=== PATIENT | female | born 1950 ===

== ENCOUNTER → 2023-09-28 14:48 | Outpatient (REF) | payer MEDICARE, OTHER, SELFPAY | LOC: WDC 14:48 | PROVIDERS: ATTENDING PHYSICIAN Family Medicine | DX: Z12.31 Encounter for screening mammogram for malignant neoplasm of breast (principal) | CPT/HCPCS: 77063; 77067 ==

== ENCOUNTER 2024-01-09 20:14 | Inpatient (IN) | payer MEDICARE, OTHER, SELFPAY ==
[2024-01-09 16:11] VITALS: BMI 36.1
[2024-01-09 16:13] VITALS: BP 175/86
[2024-01-09 16:27] LABS: % Basophils 1.1 % (0-2); % Eosinophils 8.8 % (0-6); % Immature Granulocytes 0.3 % (0-0.5); % Monocytes 10.4 % (1.7-9.3); % Neutrophils 59.4 % (42.2-75.2); Absolute Basophils 0.1 10^3/uL (0-0.2); Absolute Eosinophils 0.7 10^3/uL (0-0.7); Absolute Lymphocytes 1.5 10^3/uL (1.2-3.4); Absolute Monocytes 0.8 10^3/uL (0.1-0.6); Absolute Neutrophils 4.5 10^3/uL (1.4-6.5); Hemoglobin 12.8 g/dL (12.0-16.0); Mean Corp Hgb Conc. 35.6 g/dL (33.0-37.0); Mean Corpuscular Hgb 31.2 pg (27.0-31.0); Mean Corpuscular Volume 87.8 fL (81.0-99.0); Mean Platelet Volume 8.9 fL (7.4-10.4); Nucleated Red Blood Cells % 0 %; Platelet Count 251 10^3/uL (130-400); Red Cell Dist. Width 12.3 % (11.5-14.5); White Blood Cell Count 7.5 10^3/uL (4.8-10.8)
[2024-01-09 16:41] LABS: ALT (SGPT) 15 U/L (0-35); AST (SGOT) 23 U/L (14-36); Albumin 3.7 g/dl (3.5-5.0); Alkaline Phosphatase 84 U/L (38-126); Blood Urea Nitrogen 10 mg/dl (7-17); Calcium 9.2 mg/dl (8.4-10.2); Carbon Dioxide 31 mmol/L (22-30); Chloride 91 mmol/L (98-107); Estimated Creatinine Clearance 93 ml/min; Glucose 86 mg/dl (70-99); Lipase 61 U/L (23-300); Potassium 4.2 mmol/L (3.5-5.1); Sodium 126 mmol/L (135-145); Total Bilirubin 0.7 mg/dl (0.2-1.3); eGFR > 60.00
[2024-01-09 18:18] VITALS: BP 176/73
[2024-01-09 18:19] VITALS: BMI 37.8
--- NOTE | 2024-01-09 18:36 | ED.GENMED ---
History of Present Illness
General
Chief Complaint: Abnormal Lab Value
Source: patient
Exam Limitations: none
Time Seen by Provider: 01/09/24 18:04
History of Present Illness
History of Present Illness:
This is a 73 year old female that comes in with c/o abnormal labs. States that after she was diagnosed with a brain tumor she has had issues with low sodium. State that her PCP had blood work done on Sunday and her Sodium was 130. States that prior
to this it was 133. States that she was called today and told to come to the ER. States that she has just not felt good the last couple of days. States that she feels a little confused and unsteady on her feet. States that she may walk into a room
and doesn't remember why she is there. States that today she also felt congested and has a slight sinus infection for which she took Mucinex and now she is feeling better. States that she is always SOB due to her asthma. States that she recently had
some right lower groin pain as she thought she pulled a muscle. Denies any fever, chills, chest pain, nausea, vomiting, diarrhea, dizziness, urinary burning.
Past History
Past History
ED Past Medical History: Asthma and Other (Brain Tumor (Meningioma that they are watching), Sinus condition)
ED Past Surgical History: Gynecological (Ovary that burst but was repaired), Orthopedic (Freddy Knee Meniscus repair) and Tonsilectomy
Social History
Tobacco: Former smoker
Alcohol: None
Personal:
Living: with family
Review of Systems
Review of Systems
All Other Systems: ROS reviewed and negative except as documented in HPI and ROS
Constitutional: Reports no symptoms; Denies fever or chills
EENT: Reports no symptoms
Respiratory: Reports trouble breathing; Denies cough
Cardiac: Reports no symptoms; Denies chest pain
ABD/GI: Reports abdominal pain (Right groin pain); Denies nausea, vomiting or diarrhea
: Reports no symptoms; Denies dysuria, frequency or urgency
Musculoskeletal: Reports no symptoms
Skin: Reports no symptoms
Neurological: Reports headache and other (Feels confused); Denies dizzy
Psychiatric: Reports no symptoms
Phy Exam
General Physical Exam
General Presentation: no apparent distress
General age: appears stated age
General Skin: warm and dry
General Habitus: elderly
General Mental: alert
General Hydration: appears well hydrated
ENT Exam
ENT Exam: TM's normal, pharynx normal and neck supple
Eye Exam
Eye Exam: EOMI
Cardiovascular Exam
Cardiovascular Exam: regular rate/rhythm, no edema, no murmur and normal peripheral pulses
Pulmonary Exam
Pulmonary Exam: no respiratory distress, chest non tender, no rhonchi, no wheezing, no cough and decreased breath sounds (with fine rales at bases)
Gastrointestinal Exam
Gastrointestinal Exam: normal bowel sounds, non tender, soft, no organomegaly, no pulsatile mass and non distended
Musculoskeletal Exam
Musculoskeletal Exam: full ROM and no edema
Skin Exam
Skin Exam: normal color, warm/dry, no rash and no petechia
Psychiatric Exam
Psychiatric Exam: normal mood/affect
Course
Orders/Labs/Results
Orders:
Orders
01/09/24 Breakfast
Cholesterol Lowering
At Your Request: Full Participation
Does patient need a safe tray?: No
Fluid Restriction: 1000 mL/day (33 oz)
Cholesterol Lowering: Sodium, 2 Gram
01/09/24 16:19
Complete Blood Count/With Diff Urgent
Comprehensive Metabolic Panel Urgent
Lipase Urgent
01/09/24 18:44
CT Head W/o Iv Contrast Urgent
Comment:
Reason For Exam: Headache, feels confused,
01/09/24 18:52
Serum Osmolality Urgent
TSH Reflex To Free T4 Urgent
Comment: ADD ON
Urinalysis Reflex To Culture Urgent
Date Specimen was Collected: 01/09/24
Time Specimen was Collected: 18:45
Urine Sodium Urgent
Date Specimen was Collected: 01/09/24
Time Specimen was Collected: 18:45
01/09/24 19:03
Consult Nephrology [NEPHROLOGY CONSULT] Urgent
Consulting Provider: Elisabeth Jackson
Was physician already notified: Yes
01/09/24 19:08
Add On- LAB Urgent
Tests Added?: TSH reflex to t4
01/09/24 19:24
Admit/Transfer Patient As Directed
Co-Sign Provider:
Level of Care: Inpatient admission
Assign to:: Telemetry
Physician / Group: [email or web address]
Diagnosis: symtomatic hyponatremia
Reason for Telemetry: Other
Other Reason for Telemetry: electrolyte abnormality
Date to Stop Telemetry: 01/11/24
Time to Stop Telemetry: 11:00
Reason for Hospitalization: symtomatic hyponatremia
Expected length of stay greater than two midnights?: Yes
ELOS- Estimated Length of Stay in days: 3
I certify the patient meets the requirements for IP care: Yes
01/09/24 19:26
Code Status As Directed
Resuscitation Status: Full Code
01/09/24 20:00
3% Sodium Chloride 250 ml [Sodium Chloride 3%] 250 ml IV ONCE
01/09/24 21:40
Bisacodyl [Dulcolax] 10 mg RECTAL [id number] PRN
Docusate W/Senna [Senokot-S] 1 tablet PO BIDPRN PRN
Polyethylene Glycol Powder [Miralax] 17 grams PO DAILYPRN PRN
01/09/24 21:40
Activity As Directed
Activity Level: With Assistance
Intake/ Output As Directed
Frequency: Per unit guidelines
Vital Signs As Directed
Frequency: Per unit guidelines
Weight As Directed
Frequency: Daily
DX Deep Vein Thrombosis Video Routine
01/09/24 21:45
Fluticasone/Salmeterol 115/21 [Advair Hfa 115/21 Mcg Inhaler] 2 puff INH R BID
01/09/24 22:00
Losartan [Cozaar] 100 mg PO HS
Paroxetine [Paxil] 20 mg PO HS
01/09/24 22:38
Basic Metabolic Panel Q3H
01/10/24 01:40
Basic Metabolic Panel Q3H
01/10/24 04:40
Basic Metabolic Panel Q3H
01/10/24 06:00
Complete Blood Count/No Diff IN AM
01/10/24 07:40
Basic Metabolic Panel Q3H
01/10/24 08:00
Aspirin Low Dose EC [Aspir Low (Enteric Coated)] 81 mg PO DAILY
Bupropion Regular Release [Wellbutrin Regular Release] 75 mg PO DAILY
Ezetimibe [Zetia] 10 mg PO DAILY
01/10/24 18:00
Enoxaparin Sodium [Lovenox] 40 mg SC QPM
Abnormal Lab Results
01/09/24 01/09/24
16:19 18:52
RBC 4.10 L 10^6/uL
(4.20-5.40)
Hct 36.0 L %
(37.0-47.0)
MCH 31.2 H pg
(27.0-31.0)
Absolute Monos (auto) 0.8 H 10^3/uL
(0.1-0.6)
Lymphocytes % 20.0 L %
(20.5-51.1)
Monocytes % 10.4 H %
(1.7-9.3)
Eosinophils % 8.8 H %
(0-6)
Sodium 126 L mmol/L
(135-145)
Chloride 91 L mmol/L
(98-107)
Carbon Dioxide 31 H mmol/L
(22-30)
Serum Osmolality 261 L mOsm/kg
(275-300)
Total Protein 6.0 L g/dl
(6.3-8.2)
Urine Sodium 134 H mmol/L
(30-90)
01/09/24 16:19
01/09/24 16:19
Hyponatremia, Chloride low Carbon dioxide slightly elevated. Total protein low. Lipase normal at 61
Vital Signs
Initial and Last Documented VS:
Initial Vital Signs
Temp Pulse Resp Pulse Ox
98.4 F 59 18 96
01/09/24 16:11 01/09/24 16:11 01/09/24 16:11 01/09/24 16:11
Last Documented Vital Signs
Temp Pulse Resp BP Pulse Ox
97.8 F 60 18 154/63 95
01/09/24 23:00 01/09/24 23:00 01/09/24 23:00 01/09/24 23:00 01/09/24 23:00
MDM/Problems Addressed
Differential Diagnosis Includes:
Hyponatremia,
MDM/Problems Addressed:
This is a 73 year old female that comes in with c/o abnormal labs. States that her PCP wanted to check her sodium as since she was diagnosed with a brain tumor she has problems with her sodium. Stat that it was 133 and then on Sunday when she had
blood work done it was down to 130. Patient was called today and told to come to the ER.
Will get labs. Explained to patient that her Sodium level is now down to 126. This may be why she is feeling a little confused and unsteady. Will admit.
Chronic conditions affecting care:
Hyponatremia history
Acute Exacerbation and/or Progression of Chronic Illness:
Hyponatremia history
*Radiology
Radiology exam reviewed: radiology read reviewed (CT head- NO acute intracranial abnormality. Severe paranasal sinus mucosal disease/chronic sinusitis. )
*Pulse Oximetry
Patient hypoxic: no
*EKG
Interpreted by ED Provider?: NA
Rate: EKG- N/A
*Level Vial Inspector And Tester Interpretation
Rate: Level Vial Inspector And Tester- N/A
*Critical Care Note
Total Time (30-74mins, 75-104mins- exclusive of procedures): Not Applicable
ED Attending Note
-
Portions of this chart may have been created with voice recognition software.� Occasional wrong word or��sound alike� substitutions may have occurred due to the inherent limitations of voice recognition software.
Discharge Plan
Departure
Patient Disposition: Admit
Date of Disposition: 01/09/24
Time of Disposition: 19:06
Admit to: Telemetry
Presentation/result/management discussed w/ accepting MD/DO: Hospitalist
Patient with high blood pressure during this ER visit?: Yes
Condition: Good
Covid-19: Not Applicable
Discharge Problem:
Acute hyponatremia
Interventions
Interventions:
*Risk Screen - Suicide Last Done: 01/09/24 16:11
*General Assessment Last Done: 01/09/24 18:19
*Neglect/Abuse Screening Last Done: 01/09/24 16:11
*ED COVID-19 Vaccine History Last Done: 01/09/24 22:15
*Nursing Disposition Last Done: 01/09/24 21:46
Discharge Date and Time
Discharge Date/Time: 01/09/24 21:46
[2024-01-09 19:10] LABS: Urine Albumin Negative (Neg - Trace); Urine Bilirubin Negative (Negative); Urine Character Clear (Clear); Urine Color Yellow; Urine Glucose Negative (Negative); Urine Ketone Negative (Negative); Urine Leukocyte Negative (Negative); Urine Nitrite Negative (Negative); Urine Occult Blood Negative (Negative); Urine Urobilinogen Negative (Neg - 1+)
[2024-01-09 19:13] LABS: Osmolality Serum 261 mOsm/kg (275-300)
--- NOTE | 2024-01-09 19:14 | HPS.HSE ---
Addendum entered and electronically signed by Samuel Cobian MD 01/10/24 12:35:
11/20/22 Brain MRI w/wo contrast
1. Round 1.1 cm MENINGIOMA in the right anterior aspect of the posterior fossa causing a mild amount of mass effect on the right cerebellar hemisphere which appears unchanged from 01/16/2020.
2. Mild white matter disease in the frontal lobes which has increased since 01/16/2020 and could be secondary to migraine headaches or white matter leukoaraiosis.
3. Severe mucosal disease in the ethmoid air cells and frontal sinuses. Mild acute bilateral maxillary sinusitis. Previous bilateral medial maxillary antrostomies.
Addendum entered and electronically signed by Samuel Cobian MD 01/09/24 21:21:
CT Head W/o Iv Contrast
- The ventricles are normal in size, configuration, and position.
- There is no intra- or extra-axial mass, hemorrhage, or fluid collection.
- No areas of abnormal mass effect or attenuation are noted.
- Significant opacification of the partially imaged paranasal sinuses with wall hyperostosis, most compatible with severe chronic sinusitis. Hyperostosis frontalis interna.
IMPRESSION:
1. No acute intracranial abnormality.
2. Severe paranasal sinus mucosal disease/chronic sinusitis.
There is no HCT evidence of brain tumor or meningioma reported in PMHX by patient.
Addendum entered and electronically signed by Samuel Cobian MD 01/09/24 21:00:
Level of care : switch to floor with TLM in place of IMU - [facility] floor they can do q3h Na per Nurse super
.
Original Note:
Family Physician
-
Family Physician: Joy Ray
Chief Complaint
-
abn labs
History of Present Illness
HPI
73F HX Nato Tumor sen to ER for low Na abn labs sent to ER by PCP
Hyponatremia
- Noted since Dx of brain tumor
- PCP trending Na and noted Na 133 on Sunday susequently 130
- Today Na 126
- Noted she is on HCTZ, Bupropion, LT4
- Reports confused and unsteady
- SBP 176/73 and HR is 58
Medical History
Past Medical History
Past Medical History: Reports Other
Additional Past Medical History:
Asthma
Brain Tumor / Meningioma ?
HTN
HLD
Hypothyroid
Depression/ anxiety
Past Surgical History: Reports Other
Additional Past Surgical History:
Ovary that burst but was repaired
Freddy Knee Meniscus repair
Tonsillectomy
Social History
Tobacco: Former Smoker
Alcohol: None
Drug: None
Personal:
Living: With Family
Family History
Family History: Not pertinent
Allergies / Home Medications
Allergies reflects when Allergies were last updated in [facility].
Home Medications with original date entered in [facility]
Allergy/Medication List:
Allergies
Allergy/AdvReac Type Severity Reaction Status Date / Time
No Known Allergies Allergy Unverified 01/09/24 16:10
Home Medications
Clinical Trial: Hillary 1 dose SC TU 01/09/24
ascorbic acid (vitamin C) 500 mg tablet (Vitamin C) 500 mg PO DAILYPRN PRN supplement 01/09/24
aspirin 81 mg tablet,delayed release 81 mg PO DAILY 01/09/24
bupropion HCl 75 mg tablet 75 mg PO DAILY 01/09/24
ezetimibe 10 mg tablet 10 mg PO DAILY 01/09/24
fluticasone 250 mcg-salmeterol 50 mcg/dose blistr powdr for inhalation (Advair Diskus) 1 inh inhalation R BID 01/09/24
fluticasone propionate 50 mcg/actuation nasal spray,suspension 1 spray intranasal BID 01/09/24
hydrochlorothiazide 25 mg tablet 25 mg PO DAILY 01/09/24
levothyroxine 88 mcg tablet 88 mcg PO DAILY 01/09/24
losartan 100 mg tablet 100 mg PO HS 01/09/24
paroxetine HCl 20 mg tablet 20 mg PO HS 01/09/24
therapeutic multivitamin 1 tab PO DAILYPRN PRN supplement 01/09/24
Review of Systems
-
Constitutional: Reports No Symptoms
EENT: Reports No Symptoms
Respiratory: Reports No Symptoms
Cardiac: Reports No Symptoms
Abdomen/GI: Reports No Symptoms
: Reports No Symptoms
Musculoskeletal: Reports No Symptoms
Skin: Reports No Symptoms
Neurological: Reports See HPI and Other (unsteady and confusion )
Endocrine: Reports No Symptoms
Hematologic/Lymphatic: Reports No Symptoms
Psych: Reports No Symptoms
Physical Exam
Vital Signs
Vital Signs
Temp Pulse Resp BP Pulse Ox
98.4 F 56 18 176/73 97
01/09/24 16:11 01/09/24 18:45 01/09/24 19:12 01/09/24 18:18 01/09/24 18:45
Physical Exam
General: Well Developed, Well Nourished, No Apparent Distress, Comfortable and Conversant
HEENT: NormoCephalic, Anicteric and Moist mucous membranes
Respiratory: Clear; No Wheezes, Rales or Rhonchi
Cardiac: S1/S2, Regular Rhythm and Bradycardia
Breast: Deferred by me
GI: Soft, Non Tender, Non Distended and Normal Bowel Sounds
Genito-urinary: Deferred by me
Musculoskeletal: No Edema
Neuro: AO x 3 and Nonfocal/grossly intact
Psych: Calm and Intact Judgment/Insight; No Confused
Laboratory Results
-
01/09/24 16:19
01/09/24 16:19
Laboratory Results
Total Bilirubin 0.7 mg/dl (0.2-1.3) 01/09/24 16:19
AST 23 U/L (14-36) 01/09/24 16:19
ALT 15 U/L (0-35) 01/09/24 16:19
Alkaline Phosphatase 84 U/L (38-126) 01/09/24 16:19
Lipase 61 U/L (23-300) 01/09/24 16:19
Data Reviewed
-
Diagnostic Radiology: Other (pending HCT )
Lab Data: Labs Reviewed by me
Impression/Plan
-
Reviewed VS: BP 176/73 HR 58
Data
nl CBC
Na 126
Cl 91
CO2 31
eGFR > 60
Pending Sr Osm, Ur Na,
Pending TSH
Pending UA
Pending HCT
No prior DH admission:
ASSESSMENT & PLAN
Hyponatremia - presumed symptomatic and ER initiated 3% hyopertonic saline
DDX: SIADH ? sub acute or chronic
- Held HCTZ
- FR 1000L
- Pending Sr Osm, Ur Na and Pending TSH
- Pending HCT
- cont. 3% hypertonic saline
- Na q3H
- Renal consult
Brain Tumor /Meningioma ? at Rt side since 2018
-observational approach as OP
Essential HTN
-Held HCTZ to low Na
- cont Losartan
Hypothyroid
- check TSH
- cont. LT4
HLD: on Ezetimibe
DVT Px:
Code:
IP MS
[2024-01-09] MEDS: SODIUM CHLORIDE 3% 250 IV (19:15)
[2024-01-09 19:23] LABS: Urine Sodium 134 mmol/L (30-90)
[2024-01-09 20:00] VITALS: BP 153/68
[2024-01-09 21:50] VITALS: BP 182/99; BMI 36.7
--- NOTE | 2024-01-09 22:15 | PTCARENOTE ---
Received patient from ED via stretcher. Patient ambulated from stretcher to bed with minimal assistance. AAOx3, no current complaints of pain. Oriented patient to room and placed call woods within reach.
[2024-01-09] MEDS: ADVAIR HFA 115/21 MCG INHALER 2 PUFF INH (22:39)
[2024-01-09 22:59] LABS: Blood Urea Nitrogen 10 mg/dl (7-17); Calcium 9.1 mg/dl (8.4-10.2); Carbon Dioxide 31 mmol/L (22-30); Chloride 91 mmol/L (98-107); Estimated Creatinine Clearance 81 ml/min; Glucose 94 mg/dl (70-99); Potassium 3.9 mmol/L (3.5-5.1); Sodium 125 mmol/L (135-145); eGFR > 60.00
[2024-01-09 23:00] VITALS: BP 154/63
[2024-01-09] MEDS: PAXIL 20 MG PO (23:00)
[2024-01-09] MEDS: COZAAR 100 MG PO (23:00)
[2024-01-10 03:31] VITALS: BP 138/61
--- NOTE | 2024-01-10 03:58 | PTCARENOTE ---
0147 Q3 BMP drawn and sent down to lab at 0149. Spoke with lab who states specimen is unable to be located. STUART made aware - drawing 0440 BMP now. Plan of care ongoing.
[2024-01-10 04:14] LABS: Hematocrit 34.8 % (37.0-47.0); Hemoglobin 12.7 g/dL (12.0-16.0); Mean Corp Hgb Conc. 36.5 g/dL (33.0-37.0); Mean Corpuscular Hgb 31.6 pg (27.0-31.0); Mean Corpuscular Volume 86.6 fL (81.0-99.0); Mean Platelet Volume 8.9 fL (7.4-10.4); Platelet Count 228 10^3/uL (130-400); Red Blood Cell Count 4.02 10^6/uL (4.20-5.40); Red Cell Dist. Width 12.3 % (11.5-14.5); White Blood Cell Count 6.8 10^3/uL (4.8-10.8)
[2024-01-10 04:31] LABS: Blood Urea Nitrogen 7 mg/dl (7-17); Calcium 9.1 mg/dl (8.4-10.2); Carbon Dioxide 26 mmol/L (22-30); Chloride 97 mmol/L (98-107); Estimated Creatinine Clearance 94 ml/min; Glucose 96 mg/dl (70-99); Potassium 3.9 mmol/L (3.5-5.1); Sodium 128 mmol/L (135-145); eGFR > 60.00
[2024-01-10] MEDS: SODIUM CHLORIDE 3% 250 IV (05:20)
[2024-01-10 06:00] VITALS: BMI 36.0
[2024-01-10 07:09] VITALS: BP 164/69
[2024-01-10] MEDS: ADVAIR HFA 115/21 MCG INHALER 2 PUFF INH ×2 (07:59→20:24)
--- NOTE | 2024-01-10 08:53 | W.CON.NEPH ---
Consultation
-
Date/Time Consultation Requested: 01/10/2024 7:16AM
Date/Time Consultation Performed: 01/10/2024 9AM
Requesting Provider: Holger Reyes
Performing Provider: Elisabeth Jackson
Reason for Consultation: hyponatremia
Medical History
-
Chief Complaint: hyponatremia
History of Present Illness:
Ms. Escobedo is a 73YOF with PMH of asthma, meningioma, HTN, DLD, hypothyroid, depression/anxiety who presents to the hospital by request of PCP for hyponatremia.
She states that she has been struggling with hyponatremia since 2020 when she was diagnosed with her meningioma. This is the lowest her sodium has ever been. States that she feels okay, denies significant complaints. We did discuss her diet. She
states she lives off junk food, [place] Does not drink much water at home, max 30oz.
States that she needs her paroxetine and welbutrin to cope with feelings of depression. blood pressures are typically well controlled at home with losartan and hctz.
Past Medical History
Brain Tumor / Meningioma ?
HTN
HLD
Hypothyroid
Depression/ anxiety
Past Medical History: Other
Past Surgical History: Tonsilectomy and Other (Ovary that burst but was repaired Freddy Knee Meniscus repair)
Social History
Tobacco: Former Smoker
Alcohol: None
Drug: None
Personal:
Living: With Family
Family History
Family History: Not Pertinent
Allergies / Home Medications
Allergy/AdvReac Type Severity Reaction Status Date / Time
No Known Allergies Allergy Unverified 01/09/24 16:10
�Medication �Instructions �Recorded �Confirmed �Type
Clinical Trial: Mounjaro 1 dose SC TU 01/09/24 01/09/24 History
ascorbic acid (vitamin C) 500 mg 500 mg PO DAILYPRN PRN supplement 01/09/24 01/09/24 History
tablet (Vitamin C)
aspirin 81 mg tablet,delayed 81 mg PO DAILY 01/09/24 01/09/24 History
release
bupropion HCl 75 mg tablet 75 mg PO DAILY 01/09/24 01/09/24 History
ezetimibe 10 mg tablet 10 mg PO DAILY 01/09/24 01/09/24 History
fluticasone 250 mcg-salmeterol 50 1 inh inhalation R BID 01/09/24 01/09/24 History
mcg/dose blistr powdr for
inhalation (Advair Diskus)
fluticasone propionate 50 1 spray intranasal BID 01/09/24 01/09/24 History
mcg/actuation nasal
spray,suspension
hydrochlorothiazide 25 mg tablet 25 mg PO DAILY 01/09/24 01/09/24 History
levothyroxine 88 mcg tablet 88 mcg PO DAILY 01/09/24 01/09/24 History
losartan 100 mg tablet 100 mg PO HS 01/09/24 01/09/24 History
paroxetine HCl 20 mg tablet 20 mg PO HS 01/09/24 01/09/24 History
therapeutic multivitamin 1 tab PO DAILYPRN PRN supplement 01/09/24 01/09/24 History
Review of Systems
-
History Source: Patient
All other systems: Negative unless noted
Constitutional: Weight Gain
Physical Exam
Vital Signs
Vital Signs
Temp Pulse Resp BP Pulse Ox
98 F 70 16 164/69 98
01/10/24 07:09 01/10/24 08:03 01/10/24 08:03 01/10/24 07:09 01/10/24 08:03
Lab Results
WBC 6.8 10^3/uL (4.8-10.8) 01/10/24 03:57
RBC 4.02 10^6/uL (4.20-5.40) L 01/10/24 03:57
Hgb 12.7 g/dL (12.0-16.0) 01/10/24 03:57
Hct 34.8 % (37.0-47.0) L 01/10/24 03:57
Plt Count 228 10^3/uL (130-400) 01/10/24 03:57
eGFR > 60.00 01/10/24 03:57
eGFR Cancelled 01/10/24 03:57
Albumin 3.7 g/dl (3.5-5.0) 01/09/24 16:19
Physical Exam
General: AOx3, No Distress and Nontoxic
HEENT: PERRL, EOMI, Anicteric, Conjunctivae Clear, Ear/Nose Intact, Hearing Normal, Oropharynx Clear/Moist, Dentition Intact, Facial Symmetry, Neck Supple, Trachea Midline, No JVD and No Thyromegaly
Respiratory: Clear
Cardiac: S1/S2, Regular Rate/Rhythm and Edema
Breast: Deferred by me
Abdomen: Soft, Nontender, Nondistended, Normal Bowel Sounds and No Hepatosplenomegaly
Rectal: Deferred by Provider
Genito-urinary: No Costovertebral Tender
Musculoskeletal: No Clubbing, No Cyanosis and Edema
Skin: No Rash, Warm, Dry, No Clubbing, No Cyanosis, Normal Turgor and No Bruising
Neuro: Nonfocal/Grossly Intact
Hematologic/Lymphatic: No Cervical Lymphadenopathy
Psych: Mood/afflect pleasant, Insight/judgement good and Appropriate
Data Reviewed
-
CT Scan: Report Reviewed by me (1. No acute intracranial abnormality. 2. Severe paranasal sinus mucosal disease/chronic sinusitis. (No mass noted))
MRI: Report Reviewed by me (1. Round 1.1 cm MENINGIOMA in the right anterior aspect of the posterior fossa causing a mild amount of mass effect on the right cerebellar hemisphere which appears unchanged from 01/16/2020. 2. Mild white matter
disease in the frontal lobes which has increased since 01/16/2020 and could be second)
Labs: Labs Reviewed by me, Discussed with Physician and Discussed with Patient
Old Records: Reviewed
Assessment/Plan
-
Assessment:
Hyponatremia
Meningioma
HTN
Hypothyroid
DLD
Plan:
- obtain urine osm, urine Na
- likely SIADH from meningioma vs iatrogenic from HCTZ
- patient states she needs welbutrin and paroxetine --> okay to continue from my standpoint
- plan for samsca today
- no need for FR while on samsca
- continue to trend Na q8h
[2024-01-10] MEDS: ZETIA 10 MG PO (09:00)
[2024-01-10] MEDS: ASPIR LOW (ENTERIC COATED) 81 MG PO (09:00)
[2024-01-10 09:30] LABS: Osmolality Urine 250 mOsm/kg (300-900)
[2024-01-10 09:38] LABS: Blood Urea Nitrogen 7 mg/dl (7-17); Calcium 9.2 mg/dl (8.4-10.2); Carbon Dioxide 25 mmol/L (22-30); Chloride 97 mmol/L (98-107); Estimated Creatinine Clearance 93 ml/min; Glucose 85 mg/dl (70-99); Potassium 4.2 mmol/L (3.5-5.1); Sodium 129 mmol/L (135-145); eGFR > 60.00
--- NOTE | 2024-01-10 10:59 | W.PN.HOSP.TC ---
Addendum entered and electronically signed by Eric Wren MD 01/10/24 12:46:
MRI brain ordered to eval if meningioma progression could cause worsening of hyponatremia
Original Note:
Today's Communication/Plan
-
cont fluid restriction pending nephrology
Assessment / Plan
Assessment / Plan
73yo F with PMHx of COPD, MDD, meningioma, HLD, hypothyroidism, HTN sent by PCP 2/2 hyponatremia. She has a Hx of chronic mild hyponatremia but on this admission serum sodium decreased to 126 and patient was mildly confused in ED. Mentation back to
baseline after 3% saline
A/P
#Acute on chronic symptomatic hyponatremia
Possibly 2/2 diuretics - HCTZ stopped.
Uosm 250 - unlikely ADH activity, will continue Buspar
Neprology to follow
serial BNP, restrict fluid, target sodium increase by 4-6 mmol/L over 24h
#essential HTN
#HLD
#Meningioma
#Hypothyroidism
#COPD not in exacerbation
cont home meds and follow up with already established specialists
DVT ppx lovenox
Full code
I have spent at least 56min reviewing chart, test results, communication with consultants and direct patient care
Anticipated Discharge: Within 24 hours
Subjective/Interval History
-
Date of Service: January 10, 2024
Objective Data
-
Labs:
Laboratory Results
01/09/24 01/10/24 01/10/24
22:38 01:47 03:57
WBC 6.8
Hgb 12.7
Hct 34.8 L
Plt Count 228
Sodium 125 L Cancelled 128 L
Potassium 3.9 Cancelled
Chloride 91 L Cancelled
Carbon Dioxide 31 H Cancelled
BUN 10 Cancelled
Creatinine 0.7 Cancelled
Glucose 94 Cancelled
Calcium 9.1 Cancelled
01/10/24 01/10/24 01/10/24
03:57 03:57 03:57
WBC
Hgb
Hct
Plt Count
Sodium Cancelled
Potassium 3.9 Cancelled
Chloride 97 L Cancelled
Carbon Dioxide 26
BUN
Creatinine
Glucose
Calcium
01/10/24 01/10/24 01/10/24
03:57 03:57 03:57
WBC
Hgb
Hct
Plt Count
Sodium
Potassium
Chloride
Carbon Dioxide Cancelled
BUN 7 Cancelled
Creatinine 0.6 Cancelled
Glucose 96
Calcium
01/10/24 01/10/24 01/10/24
03:57 03:57 07:40
WBC
Hgb
Hct
Plt Count
Sodium 129 L
Potassium 4.2
Chloride 97 L
Carbon Dioxide 25
BUN 7
Creatinine 0.6
Glucose Cancelled 85
Calcium 9.1 Cancelled 9.2
01/10/24 01/10/24
12:00 18:00
WBC
Hgb
Hct
Plt Count
Sodium Pending Pending
Potassium Pending Pending
Chloride Pending Pending
Carbon Dioxide Pending Pending
BUN Pending Pending
Creatinine Pending Pending
Glucose Pending Pending
Calcium Pending Pending
Vital Signs:
Vital Signs
Temp Pulse Resp BP Pulse Ox
98 F 70 16 164/69 98
01/10/24 07:09 01/10/24 08:03 01/10/24 08:03 01/10/24 07:09 01/10/24 08:03
I&O
01/09/24 01/10/24 01/11/24
06:59 06:59 06:59
Intake Total 480 / 480
Balance 480 / 480
Review of Systems
-
History Source: Patient
All other systems: Reviewed and negative
Physical Exam
-
General: Well Developed and Well Nourished
HEENT: Normocephalic and Atraumatic
Respiratory: Clear to Auscultation
Cardiac: Regular Rhythm
GI: Soft, Nontender and Nondistended
Genito-urinary: No Costovertebral Tender
Musculoskeletal: No Clubbing, No Cyanosis and No Edema
Skin: Warm
Neuro: Awake, Alert, Oriented and AO x 3
Psych: Calm
[2024-01-10] MEDS: WELLBUTRIN REGULAR RELEASE 75 MG PO (11:16)
[2024-01-10 11:20] VITALS: BP 152/67
[2024-01-10 11:50] LABS: Osmolality Serum 270 mOsm/kg (275-300)
[2024-01-10 12:21] LABS: Urine Sodium 95 mmol/L (30-90)
[2024-01-10 12:32] LABS: Blood Urea Nitrogen 8 mg/dl (7-17); Calcium 9.6 mg/dl (8.4-10.2); Carbon Dioxide 29 mmol/L (22-30); Chloride 96 mmol/L (98-107); Estimated Creatinine Clearance 93 ml/min; Glucose 83 mg/dl (70-99); Potassium 4.4 mmol/L (3.5-5.1); Sodium 129 mmol/L (135-145); eGFR > 60.00
[2024-01-10] MEDS: SAMSCA 7.5 MG PO (14:01)
--- NOTE | 2024-01-10 14:31 | CM ---
Alert awake oriented patient who lives with her sister Bisi in a 2 story home with 0 steps to enter and 10 steps to bed/bathroom. She is independent in activates of daily living.She use no adaptive devices.Offered VN she declined.
No VN in past . No SNF hx
Pharmacy [facility]
PCP Dr Ray
PLAN Home no needs
[2024-01-10 15:17] VITALS: BP 151/65
[2024-01-10] MEDS: LOVENOX 40 MG SC (17:32)
[2024-01-10 19:18] VITALS: BP 183/66
[2024-01-10 20:07] LABS: Blood Urea Nitrogen 13 mg/dl (7-17); Calcium 9.9 mg/dl (8.4-10.2); Carbon Dioxide 29 mmol/L (22-30); Chloride 95 mmol/L (98-107); Estimated Creatinine Clearance 70 ml/min; Glucose 101 mg/dl (70-99); Potassium 4.9 mmol/L (3.5-5.1); Sodium 132 mmol/L (135-145); eGFR > 60.00
[2024-01-10] MEDS: COZAAR 100 MG PO (20:59)
[2024-01-10] MEDS: PAXIL 20 MG PO (20:59)
[2024-01-10 23:31] VITALS: BP 165/77
[2024-01-11 00:51] LABS: Blood Urea Nitrogen 14 mg/dl (7-17); Calcium 9.6 mg/dl (8.4-10.2); Carbon Dioxide 25 mmol/L (22-30); Chloride 100 mmol/L (98-107); Estimated Creatinine Clearance 80 ml/min; Glucose 98 mg/dl (70-99); Potassium 4.2 mmol/L (3.5-5.1); Sodium 132 mmol/L (135-145); eGFR > 60.00
[2024-01-11 03:09] VITALS: BP 152/60
[2024-01-11 06:00] VITALS: BMI 35.5
[2024-01-11] MEDS: ADVAIR HFA 115/21 MCG INHALER 2 PUFF INH (07:06)
[2024-01-11 07:25] VITALS: BP 154/94
[2024-01-11 07:49] LABS: Blood Urea Nitrogen 12 mg/dl (7-17); Calcium 9.3 mg/dl (8.4-10.2); Carbon Dioxide 29 mmol/L (22-30); Chloride 100 mmol/L (98-107); Estimated Creatinine Clearance 79 ml/min; Glucose 89 mg/dl (70-99); Potassium 4.6 mmol/L (3.5-5.1); Sodium 133 mmol/L (135-145); eGFR > 60.00
[2024-01-11] MEDS: WELLBUTRIN REGULAR RELEASE 75 MG PO (08:23)
[2024-01-11] MEDS: ZETIA 10 MG PO (08:23)
[2024-01-11] MEDS: DELTASONE 20 MG PO (08:24)
[2024-01-11] MEDS: ASPIR LOW (ENTERIC COATED) 81 MG PO (08:24)
[2024-01-11] MEDS: VIBRAMYCIN 100 MG PO (08:24)
[2024-01-11 11:10] VITALS: BP 152/70
--- NOTE | 2024-01-11 11:39 | W.PN.HOSP.TC ---
Today's Communication/Plan
-
pending further plan from nephrology, possible d/c
Assessment / Plan
Assessment / Plan
73yo F with PMHx of COPD, MDD, meningioma, HLD, hypothyroidism, HTN sent by PCP 2/2 hyponatremia. She has a Hx of chronic mild hyponatremia but on this admission serum sodium decreased to 126 and patient was mildly confused in ED. Mentation back to
baseline after 3% saline. S/P tolvaptan on 01/10/24. Sodium improved to 132. MRI brain showed stable small meningioma.
A/P
#Acute on chronic symptomatic hyponatremia
Possibly 2/2 diuretics - HCTZ stopped.
Uosm 250 - unlikely ADH activity, will continue Buspar
Nephrology to follow
serial BNP, sodium improved after Tolvaptan on 01/10/24
#essential HTN
#HLD
#Meningioma
#Hypothyroidism
#COPD not in exacerbation
cont home meds and follow up with already established specialists
DVT ppx lovenox
Full code
I have spent at least 56min reviewing chart, test results, communication with consultants and direct patient care
Anticipated Discharge: Within 24 hours
Subjective/Interval History
-
Date of Service: January 11, 2024
Objective Data
-
Labs:
Laboratory Results
01/11/24 01/11/24
00:12 06:44
Sodium 132 L 133 L
Potassium 4.2 4.6
Chloride 100 100
Carbon Dioxide 25 29
BUN 14 12
Creatinine 0.7 0.7
Glucose 98 89
Calcium 9.6 9.3
Vital Signs:
Vital Signs
Temp Pulse Resp BP Pulse Ox
98.7 F 64 18 152/70 94
01/11/24 11:10 01/11/24 11:10 01/11/24 11:10 01/11/24 11:10 01/11/24 11:10
I&O
01/10/24 01/11/24 01/12/24
06:59 06:59 06:59
Intake Total 480 / 480 240 / 240
Output Total 600 / 600
Balance 480 / 480 -360 / -360
Review of Systems
-
History Source: Patient
All other systems: Reviewed and negative
Physical Exam
-
General: Well Developed, Well Nourished and No Apparent Distress
HEENT: Normocephalic, Atraumatic and Moist Mucous Membranes
Respiratory: Clear to Auscultation; Negative Wheezes, Rales or Rhonchi
Cardiac: Regular Rhythm and S1/S2; Negative Murmur
GI: Soft, Nontender and Nondistended
Rectal: Brown
Musculoskeletal: No Clubbing and No Cyanosis
Skin: Warm; Negative Dry
Neuro: Awake, Alert, Oriented and AO x 3
Psych: Calm
[2024-01-11] MEDS: PROCARDIA XL (EXTENDED RELEASE) 30 MG PO (11:47)
[2024-01-11 11:55] VITALS: BP 152/70
--- NOTE | 2024-01-11 12:14 | W.DCSUMMARY ---
Discharge Summary
Discharge Data
Date of Admission: 01/09/24
Date of Discharge: 01/11/24
-
Pending Results: No
Hospital Course
73yo F with PMHx of COPD, MDD, meningioma, HLD, hypothyroidism, HTN sent by PCP 2/2 hyponatremia. She has a Hx of chronic mild hyponatremia but on this admission serum sodium decreased to 126 and patient was mildly confused in ED. Mentation back to
baseline after 3% saline. S/P tolvaptan on 01/10/24. Sodium improved to 132. MRI brain showed stable small meningioma. Started on DOxy and short course of steroids 2/2 acute on chronic sinusitis that patient will follow with her established ENT. BNP
in 1 week with PCP. Stop HCTZ and start Nifedipine. Patient verbalized understanding of the instructions. Medically stable for d/c.
I have spent at least 36min preparing d/c
Patient was managed for:
#Acute on chronic symptomatic hyponatremia
#Acute on chronic sinusitis
#essential HTN
#HLD
#Meningioma
#Hypothyroidism
#COPD not in exacerbation
Discharge Plan
-
Patient Disposition: Home (Routine Discharge)
Discharge Diagnosis/Procedures: hyponatremia
Diet: Regular
Activity: As tolerated
Driving Restrictions: As prior to admission
Bathing Restrictions: None
Referrals:
Joy Ray MD [Family Provider] - in less than 1 week (Repeat BMP blood test)
Prescriptions:
New
prednisone 20 mg Tablet
20 mg PO DAILY Qty: 4 0RF
doxycycline hyclate 100 mg Capsule
100 mg PO Q12 Qty: 9 0RF
nifedipine 30 mg Tablet Extended Release
30 mg PO DAILY 30 Days Qty: 30 0RF
Continued
fluticasone propion-salmeterol [Advair Diskus] 250-50 mcg/dose blister with device
1 inh INHALATION R BID
therapeutic multivitamin Tablet
1 tab PO DAILYPRN PRN (Reason: supplement)
aspirin 81 mg Tablet,Delayed Release (Dr/Ec)
81 mg PO DAILY
levothyroxine 88 mcg tablet
88 mcg PO DAILY
ascorbic acid (vitamin C) [Vitamin C] 500 mg Tablet
500 mg PO DAILYPRN PRN (Reason: supplement)
paroxetine HCl 20 mg tablet
20 mg PO HS
bupropion HCl 75 mg tablet
75 mg PO DAILY
losartan 100 mg tablet
100 mg PO HS
fluticasone propionate 50 mcg/actuation spray,suspension
1 spray INTRANASAL BID
ezetimibe 10 mg tablet
10 mg PO DAILY
Clinical Trial: Mounjaro
1 dose SC TU
Patient Comments:
01/09/2024: Pt is on a weight loss clinical trial for Mounjaro. Pt believes she is on '14mg', or 'the highest dose'. Pt goes to the [facility] in [place] for this clinical trial.
Discontinued
hydrochlorothiazide 25 mg tablet
25 mg PO DAILY
Discharge Orders:
Discharge Patient (As Directed); Ordered 01/11/24
Ordered By: Eric Wren
Discharge Date and Time
Print Language: TURKMEN
--- NOTE | 2024-01-11 14:36 | W.PN.NEPH.PH ---
Today's Communication / Plan
-
ok to d/c f/u with PCP
Assessment/Plan
-
Assessment:
Hyponatremia
Meningioma
HTN
Hypothyroid
DLD
Plan:
-Hyponatremia -improving with samsca at 133
urine osm 250, urine Na high 95 with HCTZ
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
- patient states she needs welbutrin and paroxetine --> okay to continue from my standpoint
cont FR 48ounces/day
BMP next week with PCP , off HCTZ indefinitely, could try lasix if needed
BP improving, added Procardia, cont ARB
reviewed with pt
-
-
Date of Service: January 11, 2024
CC / HPI / ROS
-
Chief Complaint:
Hypoantremia
History of Present Illness:
sodium better at 133
BP stable , no fever
Review of Systems:
no cp or sob
no n/v
Labs
-
Labs:
WBC 6.8 10^3/uL (4.8-10.8) 01/10/24 03:57
RBC 4.02 10^6/uL (4.20-5.40) L 01/10/24 03:57
Hgb 12.7 g/dL (12.0-16.0) 01/10/24 03:57
Hct 34.8 % (37.0-47.0) L 01/10/24 03:57
Plt Count 228 10^3/uL (130-400) 01/10/24 03:57
Sodium 133 mmol/L (135-145) L 01/11/24 06:44
Potassium 4.6 mmol/L (3.5-5.1) 01/11/24 06:44
Chloride 100 mmol/L (98-107) 01/11/24 06:44
Carbon Dioxide 29 mmol/L (22-30) 01/11/24 06:44
BUN 12 mg/dl (7-17) 01/11/24 06:44
Creatinine 0.7 mg/dL (0.6-1.0) 01/11/24 06:44
eGFR > 60.00 01/11/24 06:44
Glucose 89 mg/dl (70-99) 01/11/24 06:44
Calcium 9.3 mg/dl (8.4-10.2) 01/11/24 06:44
Albumin 3.7 g/dl (3.5-5.0) 01/09/24 16:19
Physical Exam
-
Vital Signs:
Vital Signs
Temp Pulse Resp BP Pulse Ox
98.7 F 64 18 152/70 94
01/11/24 11:55 01/11/24 11:55 01/11/24 11:55 01/11/24 11:55 01/11/24 11:55
Cardiovascular:: Regular rate and rhythm
Respiratory:: Bilateral: CTA
Lung Excursion:: Normal
Extremity Edema:: None: Bilateral:
Jones Catheter: No
[2024-01-11 15:06] VITALS: BP 150/68
--- NOTE | 2024-01-11 17:06 | CM ---
Addendum entered by Bita Cadena 01/11/24 17:07:
patient signed imm letter.
Original Note:
met with patient at bedside.she is stable for dc home with no needs.family to transport home.
== END 2024-01-11 15:39 | disposition home or self-care (01) | DRG 645 ==
LOC: 4 EAST ACU 20:14
PROVIDERS: Clinical Nurse Specialist Family Health; Student in an Organized Health Care Education/Training Program; ADMITTING PHYSICIAN Internal Medicine; ATTENDING PHYSICIAN Internal Medicine; CONSULT PHYSICIAN Student in an Organized Health Care Education/Training Program; EMERGENCY PHYSICIAN Emergency Medicine; FAMILY PHYSICIAN Family Medicine
DX: E22.2 Syndrome of inappropriate secretion of antidiuretic hormone (principal); E03.9 Hypothyroidism, unspecified; I10 Essential (primary) hypertension; J32.9 Chronic sinusitis, unspecified; E78.5 Hyperlipidemia, unspecified; J44.89 Other specified chronic obstructive pulmonary disease; D32.0 Benign neoplasm of cerebral meninges; F32.9 Major depressive disorder, single episode, unspecified; Z79.82 Long term (current) use of aspirin
CPT/HCPCS: 70450; 70553; 80048; 80053; 81003; 82570; 83690; 83930; 83935; 84300; 84443; 85025; 85027; 94640; 96360; 96361; 99284; A9575

== ENCOUNTER → 2024-03-13 12:00 | Outpatient (REF) | payer MEDICARE, OTHER, SELFPAY | LOC: CLAB 12:00 | PROVIDERS: ATTENDING PHYSICIAN Physician Assistant | DX: J32.0 Chronic maxillary sinusitis (principal) | CPT/HCPCS: 87070; 87077; 87186; 87205 ==

== ENCOUNTER → 2024-07-07 14:02 | Outpatient (REF) | payer MEDICARE, OTHER, SELFPAY | LOC: DHSLP 14:02 | PROVIDERS: ATTENDING PHYSICIAN Internal Medicine Critical Care Medicine; FAMILY PHYSICIAN Family Medicine | DX: G47.30 Sleep apnea, unspecified (principal); R06.83 Snoring | CPT/HCPCS: 95800 ==

== ENCOUNTER → 2024-07-10 13:11 | Outpatient (REF) | payer MEDICARE, OTHER, SELFPAY | LOC: RAD 13:11 | PROVIDERS: ATTENDING PHYSICIAN Nurse Practitioner Family | DX: R05.9 Cough, unspecified (principal) | CPT/HCPCS: 71046 ==

== ENCOUNTER → 2024-11-03 12:04 | Outpatient (REF) | payer MEDICARE, OTHER, SELFPAY | LOC: DHSLP 12:04 | PROVIDERS: ATTENDING PHYSICIAN Internal Medicine Critical Care Medicine; FAMILY PHYSICIAN Family Medicine | DX: G47.00 Insomnia, unspecified (principal); G47.8 Other sleep disorders; R06.83 Snoring | CPT/HCPCS: 95810 ==

== ENCOUNTER 2024-11-20 10:51 | Outpatient (RCR) | payer MEDICARE, OTHER, SELFPAY ==
[2024-11-20 11:00] VITALS: BP 151/68
[2024-11-20] MEDS: NUCALA 1 MG SC (11:19)
[2024-11-20 11:50] VITALS: BP 153/76
== END 2024-12-15 12:48 | disposition home or self-care (01) ==
LOC: OID 10:51
PROVIDERS: ATTENDING PHYSICIAN Internal Medicine Critical Care Medicine; FAMILY PHYSICIAN Family Medicine
DX: J45.50 Severe persistent asthma, uncomplicated (principal); Z87.891 Personal history of nicotine dependence
CPT/HCPCS: 96372; J2182

== ENCOUNTER → 2024-11-27 13:25 | Outpatient (REF) | payer MEDICARE, OTHER, SELFPAY | LOC: RAD 13:25 | PROVIDERS: ATTENDING PHYSICIAN Nurse Practitioner Family; FAMILY PHYSICIAN Family Medicine | DX: R22.43 Localized swelling, mass and lump, lower limb, bilateral (principal) | CPT/HCPCS: 93970 ==

== ENCOUNTER 2025-01-15 13:40 | Outpatient (RCR) | payer MEDICARE, OTHER, SELFPAY ==
[2024-12-18 10:56] VITALS: BP 156/73
[2024-12-18] MEDS: NUCALA 1 MG SC (11:15)
[2024-12-18 12:15] VITALS: BP 147/67
[2025-01-15 14:20] VITALS: BP 179/69
[2025-01-15] MEDS: NUCALA 1 MG SC (14:25)
== END 2025-01-15 23:59 | disposition home or self-care (01) ==
LOC: OID 13:40
PROVIDERS: ATTENDING PHYSICIAN Internal Medicine Critical Care Medicine; FAMILY PHYSICIAN Family Medicine
DX: J45.50 Severe persistent asthma, uncomplicated (principal); Z87.891 Personal history of nicotine dependence
CPT/HCPCS: 96372; J2182

== ENCOUNTER 2025-02-12 10:35 | Outpatient (RCR) | payer MEDICARE, OTHER, SELFPAY ==
[2025-02-12 11:07] VITALS: BP 181/79
[2025-02-12] MEDS: NUCALA 1 MG SC (11:19)
== END 2025-02-13 09:32 | disposition home or self-care (01) ==
LOC: OID 10:35
PROVIDERS: ATTENDING PHYSICIAN Internal Medicine Critical Care Medicine; FAMILY PHYSICIAN Family Medicine
DX: J45.40 Moderate persistent asthma, uncomplicated (principal); Z87.891 Personal history of nicotine dependence
CPT/HCPCS: 96372; J2182

== ENCOUNTER → 2025-03-06 12:11 | Outpatient (REF) | payer MEDICARE, OTHER, SELFPAY | LOC: RCS 12:11 | PROVIDERS: ATTENDING PHYSICIAN Internal Medicine Cardiovascular Disease; FAMILY PHYSICIAN Family Medicine | DX: R60.0 Localized edema (principal); R06.02 Shortness of breath; I10 Essential (primary) hypertension | CPT/HCPCS: 93306 ==

== ENCOUNTER 2025-03-12 12:59 | Outpatient (RCR) | payer MEDICARE, OTHER, SELFPAY ==
[2025-03-12 13:15] VITALS: BP 196/60
[2025-03-12] MEDS: NUCALA 1 MG SC (13:36)
== END 2025-03-13 09:07 | disposition home or self-care (01) ==
LOC: OID 12:59
PROVIDERS: ATTENDING PHYSICIAN Internal Medicine Critical Care Medicine; FAMILY PHYSICIAN Family Medicine
DX: J45.50 Severe persistent asthma, uncomplicated (principal); Z87.891 Personal history of nicotine dependence
CPT/HCPCS: 96372; J2182

== ENCOUNTER 2025-04-09 12:56 | Outpatient (RCR) | payer MEDICARE, OTHER, SELFPAY ==
[2025-04-09 13:08] VITALS: BP 140/82
[2025-04-09] MEDS: NUCALA 1 MG SC (13:14)
== END 2025-04-17 23:59 | disposition home or self-care (01) ==
LOC: OID 12:56
PROVIDERS: ATTENDING PHYSICIAN Internal Medicine Critical Care Medicine; FAMILY PHYSICIAN Family Medicine
DX: J45.50 Severe persistent asthma, uncomplicated (principal); Z87.891 Personal history of nicotine dependence
CPT/HCPCS: 96372; J2182

== ENCOUNTER 2025-04-23 08:37 | Emergency (ER) | payer MEDICARE, OTHER, SELFPAY ==
[2025-04-23 08:42] VITALS: BMI 36.6
[2025-04-23 08:43] VITALS: BP 167/83
[2025-04-23 08:45] VITALS: BP 167/83
[2025-04-23 09:00] VITALS: BP 171/69
[2025-04-23] MEDS: NSS 1000 IV (09:01)
[2025-04-23 09:02] LABS: Hematocrit 43.7 % (37.0-47.0); Hemoglobin 14.9 g/dL (12.0-16.0); Mean Corp Hgb Conc. 34.1 g/dL (33.0-37.0); Mean Corpuscular Volume 87.4 fL (81.0-99.0); Nucleated Red Blood Cells % 0 %; Platelet Count 251 10^3/uL (130-400); Red Cell Dist. Width 12.8 % (11.5-14.5)
[2025-04-23 09:14] LABS: ALT (SGPT) 14 U/L (0-35); AST (SGOT) 21 U/L (14-36); Albumin 4.2 g/dl (3.5-5.0); Alkaline Phosphatase 107 U/L (38-126); Blood Urea Nitrogen 9 mg/dl (7-17); Calcium 9.4 mg/dl (8.4-10.2); Carbon Dioxide 28 mmol/L (22-30); Chloride 96 mmol/L (98-107); Estimated Creatinine Clearance 80 ml/min; Glucose 123 mg/dl (70-99); Magnesium 2.0 mg/dl (1.6-2.3); Potassium 4.0 mmol/L (3.5-5.1); Sodium 129 mmol/L (135-145); Total Protein 7.0 g/dl (6.3-8.2); eGFR > 60.00
[2025-04-23 10:00] VITALS: BP 190/87
[2025-04-23 10:23] VITALS: BP 161/85
--- NOTE | 2025-04-23 11:51 | ED.GENMED ---
History of Present Illness
General
Chief Complaint: Generalized Pain
Source: patient and family
Exam Limitations: none
Time Seen by Provider: 04/23/25 08:44
History of Present Illness
History of Present Illness:
Note:
CHIEF COMPLAINT(S)
Right-sided weakness and pain, dizziness, and chills following bowel preparation for a colonoscopy.
HISTORY OF PRESENT ILLNESS
The patient is a 74-year-old female who presented with concerns of potentially experiencing a stroke after taking a bowel preparation for a scheduled colonoscopy. The symptoms began the night prior with sudden, intense, right-sided pain commencing
from the upper arm and spreading to the chest, leg, and foot. The patient described the pain as like being 'hit with a bolt of lightning' and reports that it was alleviated when the arm was crossed over the body. During the episode, she also
experienced significant chills, dizziness, and noted weakness, particularly in her right leg, which led her to worry it might not support her when standing. She did not experience pain or weakness in the left arm or leg, and did not have chest or
abdominal pain. The symptoms were significant enough that she had to lean on doorways for support and felt the need to lie down due to the fear of passing out. She continues to experience pain in the right side and a cramp in her right thigh, with
some soreness in the calf, but the intensity has since diminished. The patient also reported feeling weak and drained currently, although there is no particular shortness of breath noted, despite a history of asthma.
PAST MEDICAL AND SURIGICAL HISTORY
History of asthma. Known sodium imbalance previously recorded at 126 mmol/L, attributed to medication use.
MEDICATIONS
The patient is on furosemide (Lasix) a couple of times per week.
PHYSICAL EXAM
General: Alert, oriented, no acute distress.
Skin: Warm, dry.
Head: Normocephalic, atraumatic.
Neck: Supple with trachea midline.
Eye, Ears, Nose, Mouth, and Throat: Oral mucosa moist.
Cardiovascular: Heart regular without murmur. Good peripheral pulses. Normal perfusion.
Respiratory: Non-labored respirations.
Gastrointestinal: Abdomen soft, non-tender, non-distended.
Back: Normal alignment and range of motion.
Musculoskeletal: Right-side weakness noted but retains strength in testing.
Neurological: Alert and oriented to person, place, time, and situation; no focal neurological deficits observed. Normal [id number] test; no pronator drift; normal bilateral movements.
Psychiatric: Appropriate mood and affect, cooperative.
PROBLEM LIST
Acute Problems:
- Right-sided pain and weakness post bowel preparation
- Possible electrolyte imbalance due to diuretic use and bowel preparation
CHRONIC MEDICAL CONDITIONS SIGNIFICANTLY AFFECTING CARE
- Asthma
- History of sodium imbalance
PLAN
1. Administer intravenous fluids to address potential dehydration and electrolyte imbalance.
2. Perform electrocardiogram due to reported chest pain radiating to the right side.
3. Conduct blood tests to assess electrolyte levels, particularly sodium and potassium, given diuretic use.
4. Monitor the patient�s symptoms and response to fluids for possible improvement.
DIFFERENTIAL DIAGNOSIS
The Differential Diagnosis includes, in no particular order and is not limited to:
1. Stroke or transient ischemic attack
2. Electrolyte imbalance
3. Musculoskeletal pain due to cramp or strain
4. Dehydration-related symptoms
5. Cardiac event
6. Medication-related adverse effect
7. Peripheral neuropathy
8. Anxiety or panic attack
9. Viral infection with systemic symptoms
10. Myofascial pain syndrome
EKG
My independent EKG interpretation is:
- Time of EKG: Not specified
- Rhythm: Normal sinus rhythm
- Heart Rate: 60 beats per minute
- Notable Intervals: Right bundle branch block noted
- Rickman: Not specified
- Abnormalities Observed: No Q waves or ST segment changes
Disposition:
SUMMARY OF ENCOUNTER
The patient presented with muscle cramping and generalized weakness during a bowel preparation for a colonoscopy. On reassessment after IV fluid administration, the patient reported significant improvement and demonstrated the ability to ambulate to
the bathroom with a normal gait. No focal motor deficits were noted on examination. Laboratory evaluation revealed a slightly low sodium level, likely influenced by her use of furosemide (Lasix) in conjunction with bowel preparation, leading to
volume depletion. The patients symptoms were attributed to these factors.
DISPOSITION
Discharge
ASSESSMENT
The patients symptoms of cramping and weakness were likely due to an electrolyte imbalance, particularly hyponatremia, exacerbated by diuretic use and bowel preparation-associated volume depletion. The improvement with IV fluids further supports
this conclusion.
PLAN
The patient will be discharged with instructions to gradually resume her diet and maintain proper hydration. She is advised to follow up with her family doctor as an outpatient. The sister will monitor the patient at home to ensure her safety and
recovery.
INDEPENDENT REVIEW OF LABS AND INTERPRETATION OF TESTS
My independent review of electrolyte levels indicates hyponatremia with a sodium level of 129 mmol/L.
PATIENT EDUCATION AND COUNSELING
The patient was educated on the importance of adequate hydration, especially when using diuretics or undergoing bowel preparation. She was advised to monitor her symptoms closely and to report any recurrence or worsening of symptoms.
FOLLOW-UP INSTRUCTIONS
The patient should follow up with her family doctor to assess her recovery and monitor her sodium levels.
MEDICATION RECONCILIATION
The patient uses furosemide (Lasix) a couple of times per week.
MEDICAL DECISION MAKING
-Complexity of Data Reviewed: Chronic conditions affecting care: Asthma, History of sodium imbalance.
-Data:
Category 1: My independent interpretation of the EKG indicates normal sinus rhythm with a heart rate of 60 beats per minute, and right bundle branch block noted without any Q waves or ST segment changes.
-Risk:
Consideration of Admission/Observation: Escalation of care including admission/observation was considered given the complexity and risk of the patients presenting complaint. However, ultimately I feel the patient is safe for outpatient management
with close follow-up. Reasoning: Work-up is reassuring, does not reveal any acute life-threatening processes, patients symptoms were well controlled upon reevaluation, reexamination is reassuring, vitals are stable, patient agreeable with discharge,
reliable for follow-up.
DIAGNOSIS
- Electrolyte disturbance: Hyponatremia (ICD-10: E87.1)
- Volume depletion (mild) (ICD-10: E86.0)
Past History
Past History
ED Past Medical History: Asthma and Other (Brain Tumor (Meningioma that they are watching), Sinus condition)
ED Past Surgical History: Gynecological (Ovary that burst but was repaired), Orthopedic (Freddy Knee Meniscus repair) and Tonsilectomy
Social History
Tobacco: Former smoker
Alcohol: None
Personal:
Living: with family
Phy Exam
Physical Exam
Physical Exam:
.
Course
Orders/Labs/Results
Orders:
Orders
04/23/25 08:47
CMP [Comprehensive Metabolic Panel] Urgent
Complete Blood Count/With Diff Urgent
Magnesium Urgent
Comment: ADD ON
04/23/25 08:54
Add On- LAB Urgent
Tests Added?: Mg
0.9% Sodium Chloride 1000 ml [Nss] 1,000 ml IV BOLUS
04/23/25 08:55
Electrocardiogram (*1) Urgent
Reason for Study: Chest Pain
EKG- Treatment ONCE
Abnormal Lab Results
04/23/25
08:47
Absolute Neuts (auto) 9.0 H 10^3/uL
(1.4-6.5)
Absolute Lymphs (auto) 0.8 L 10^3/uL
(1.2-3.4)
Absolute Monos (auto) 0.8 H 10^3/uL
(0.1-0.6)
Neutrophils % 84.7 H %
(42.2-75.2)
Lymphocytes % 7.2 L %
(20.5-51.1)
Sodium 129 L mmol/L
(135-145)
Chloride 96 L mmol/L
(98-107)
Glucose 123 H mg/dl
(70-99)
04/23/25 08:47
04/23/25 08:47
Vital Signs
Initial and Last Documented VS:
Initial Vital Signs
Pulse Ox
92
04/23/25 08:42
Last Documented Vital Signs
Temp Pulse Resp BP Pulse Ox
97.9 F 66 16 161/85 93
04/23/25 10:28 04/23/25 10:28 04/23/25 10:28 04/23/25 10:23 04/23/25 10:12
*Pulse Oximetry
SaO2: 93
Oxygen Mode of Delivery: Room air
Patient hypoxic: no
*Critical Care Note
Total Time (30-74mins, 75-104mins- exclusive of procedures): Not Applicable
ED Attending Note
-
Portions of this chart may have been created with voice recognition software.� Occasional wrong word or��sound alike� substitutions may have occurred due to the inherent limitations of voice recognition software.
Discharge Plan
Departure
Patient Disposition: Home (Routine Discharge)
Date of Disposition: 04/23/25
Time of Disposition: 11:52
Patient with high blood pressure during this ER visit?: Yes
Discharge Problem:
Volume depletion, Dehydration with hyponatremia
Instructions: Dehydration in children, BLOOD PRESSURE
Prescriptions:
No Action
aspirin 81 mg Tablet,Delayed Release (Dr/Ec)
81 mg PO .QOD
levothyroxine 88 mcg tablet
88 mcg PO DAILY
paroxetine HCl 20 mg tablet
20 mg PO HS
bupropion HCl 75 mg tablet
75 mg PO DAILY
losartan 100 mg tablet
100 mg PO HS
ezetimibe 10 mg tablet
10 mg PO DAILY
Trelegy Ellipta 200-62.5-25 mcg Blister With Device
1 inh INHALATION DAILY
montelukast 10 mg Tablet
10 mg PO HS
cetirizine [Zyrtec] 5 mg Tablet
10 mg PO DAILY
furosemide 20 mg Tablet
20 mg PO DAILY
Rx Instructions:
Takes only on Mon-Sun-Sun
Referrals:
Joy Ray MD [Family Provider, Family Practice]
Activity Restrictions/Additional Instructions:
Please drink plenty of fluids and advance diet slowly. Return immediately for weakness of any kind, vomiting, headaches, fevers, abdominal pain, motor weakness or any other concerns. Please see your doctor in the next 3 to 5 days for follow-up and
reevaluation. Please have your laboratory studies rechecked in the next 2 weeks.
Interventions
Interventions:
*Risk Screen - Suicide Last Done: 04/23/25 08:38
*General Assessment Last Done: 04/23/25 08:38
*Neglect/Abuse Screening Last Done: 04/23/25 08:41
*ED- Fall Risk Assessment Last Done: 04/23/25 08:41
*ED COVID-19 Vaccine History Last Done: 04/23/25 08:41
*ED Influenza Vaccine History Last Done: 04/23/25 08:41
Discharge Date and Time
Print Language: MARTINIQUAIS
== END 2025-04-23 12:30 | disposition home or self-care (01) ==
LOC: EMR 08:37
PROVIDERS: EMERGENCY PHYSICIAN Emergency Medicine; FAMILY PHYSICIAN Family Medicine
DX: E86.0 Dehydration (principal); E87.1 Hypo-osmolality and hyponatremia; J45.909 Unspecified asthma, uncomplicated; Z87.891 Personal history of nicotine dependence
CPT/HCPCS: 96360; 99284; 80053; 83735; 85025; 93005

== ENCOUNTER 2025-05-07 13:13 | Outpatient (RCR) | payer MEDICARE, OTHER, SELFPAY ==
[2025-05-07 13:15] VITALS: BP 176/89
[2025-05-07] MEDS: NUCALA 1 MG SC (13:49)
== END 2025-05-08 08:14 | disposition home or self-care (01) ==
LOC: OID 13:13
PROVIDERS: ATTENDING PHYSICIAN Internal Medicine Critical Care Medicine; FAMILY PHYSICIAN Family Medicine
DX: J45.50 Severe persistent asthma, uncomplicated (principal); Z87.891 Personal history of nicotine dependence
CPT/HCPCS: 96372; J2182

== ENCOUNTER 2025-06-04 11:24 | Outpatient (RCR) | payer MEDICARE, OTHER, SELFPAY ==
[2025-06-04 11:32] VITALS: BP 132/82
[2025-06-04] MEDS: NUCALA 1 MG SC (11:40)
== END 2025-06-05 09:11 | disposition home or self-care (01) ==
LOC: OID 11:24
PROVIDERS: ATTENDING PHYSICIAN Internal Medicine Critical Care Medicine; FAMILY PHYSICIAN Family Medicine
DX: J45.50 Severe persistent asthma, uncomplicated (principal); Z87.891 Personal history of nicotine dependence
CPT/HCPCS: 96372; J2182